=== PATIENT | male | born 1985 | race Hispanic/Latino ===

== ENCOUNTER 2020-12-06 07:00 | Observation (INO) | payer OTHER ==
[2020-12-02 16:25] LABS: ANION GAP 13.8 mmol/L (8-16); BLOOD UREA NITROGEN 8 mg/dL (7-26); BUN/CREATININE RATIO 11 (6-25); CALCIUM 9.2 mg/dL (8.4-10.2); CARBON DIOXIDE 27 mmol/L (22-29); CHLORIDE 103 mmol/L (98-107); CREATININE, SERUM 0.76 mg/dL (0.72-1.25); EST GLOMERULAR FILTRATION RATE > 60 ML/MIN (60-); GLUCOSE 158 mg/dL (74-118); POTASSIUM 3.8 mmol/L (3.5-5.1); SODIUM 140 mmol/L (136-145)
[~2020-12-06] VITALS: Ht 170.2 cm; Wt 95.3 kg
[~2020-12-06 07:00] MED LIST: GLIPIZIDE5 MG PO; METFORMIN HCL850 MG PO
[2020-12-06] MEDS ORDERED: CEFAZOLIN SOD 1 GM/NS 50ML 50 ML IV ONE (08:38)
[2020-12-06] MEDS ORDERED: BUPIVACAINE HCL 0.5% INJ 30 ML VIAL INJ ONE (10:53)
[2020-12-06] MEDS ORDERED: ACETAMINOPHEN 650 MG SUPP PR PRN (11:00)
[2020-12-06] MEDS ORDERED: ONDANSETRON HCL INJ 2MG/ML 2ML 2 MG/ML VIAL IV PRN (11:00)
[2020-12-06] MEDS ORDERED: DOCUSATE SODIUM 100 MG CAP PO PRN (11:00)
[2020-12-06] MEDS ORDERED: HYDROCODONE/APAP 5MG-325MG TAB PO PRN (11:00)
[2020-12-06] MEDS ORDERED: KETOROLAC TROMETHAMINE 30 MG/ML VIAL IV PRN (11:00)
[2020-12-06] MEDS ORDERED: DIPHENHYDRAMINE HCL INJ 50 MG/ML VIAL IV PRN (11:00)
[2020-12-06] MEDS ORDERED: HYDROMORPHONE 1MG/1ML INJ ONE (11:33)
[2020-12-06] MEDS ORDERED: MORPHINE SULFATE INJ 10 MG/ML ONE (11:45)
[2020-12-06] MEDS ORDERED: KETOROLAC TROMETHAMINE 30 MG/ML VIAL ONE (12:24)
[2020-12-06] MEDS ORDERED: PROPOFOL IV EMULSION 10 MG/ML 20 ML VIAL ONE (12:24)
[2020-12-06] MEDS ORDERED: LIDOCAINE HCL 2% LOCAL INJ 5 ML SDV VIAL INJ ONE (12:24)
[2020-12-06] MEDS ORDERED: SEVOFLURANE INHAL SOLN 250 ML PEN BTL ONE (12:24)
[2020-12-06] MEDS ORDERED: DEXAMETHASONE SOD PHOS INJ 4 MG/ML VIAL ONE (12:24)
[2020-12-06] MEDS ORDERED: ONDANSETRON HCL INJ 2MG/ML 2ML 2 MG/ML VIAL ONE (12:24)
[2020-12-06] MEDS ORDERED: POVIDONE IODINE 0.05% 0.05 % ML PO ONE (12:24)
[2020-12-06] MEDS ORDERED: MIDAZOLAM HCL 2 MG/2 ML VIAL ONE (15:10)
[2020-12-06] MEDS ORDERED: FENTANYL CITRATE/PF 100MCG/2 ML INJ ONE (15:10)
[2020-12-06 15:45] VITALS: BP 124/76
[2020-12-06] MEDS: SODIUM CHLORIDE 0.9% 1000ML 1,000 ML IV SCH ×2 (16:40→20:03)
[2020-12-06] MEDS ORDERED: ACETAMINOPHEN 1000 MG/100 ML IV PRN (17:00)
[2020-12-06] MEDS: CELECOXIB 100 MG CAP PO SCH (17:03)
[2020-12-06] MEDS: CEFAZOLIN SOD 1 GM/NS 50ML 50 ML IV SCH (17:03)
[2020-12-06 20:00] VITALS: BP 121/76
[2020-12-06] MEDS ORDERED: ZOLPIDEM TARTRATE 5 MG TAB PO PRN (21:00)
[2020-12-06 21:09] VITALS: BP 121/76
[2020-12-06] MEDS ORDERED: GLIPIZIDE 5 MG TAB PO ONE (22:15)
[2020-12-06] MEDS ORDERED: METFORMIN HCL 850 MG TAB PO ONE (22:15)
[2020-12-06] MEDS: HYDROCODONE/APAP 7.5MG-325MG 1 EA TAB PO PRN (22:25)
[2020-12-07] VITALS (8 sets, daily range): BP systolic 115–130; BP diastolic 73–82
[2020-12-07] MEDS: CEFAZOLIN SOD 1 GM/NS 50ML 50 ML IV SCH ×2 (02:55→11:13)
[2020-12-07] MEDS: SODIUM CHLORIDE 0.9% 1000ML 1,000 ML IV SCH ×2 (04:48→16:27)
[2020-12-07] MEDS: CELECOXIB 100 MG CAP PO SCH (08:16)
[2020-12-07] MEDS: METFORMIN HCL 850 MG TAB PO SCH ×2 (08:16→16:26)
[2020-12-07] MEDS: GLIPIZIDE 5 MG TAB PO SCH ×2 (08:17→16:26)
[2020-12-07] MEDS ORDERED: ONDANSETRON HCL 4 MG ORAL DISINTEGRATING TAB PO PRN (12:45)
[2020-12-07] MEDS ORDERED: DAPTOMYCIN 500mg 10ML 500 MG in SODIUM CHLORIDE 0.9% 100 ML 100 ML IV ONE (15:00)
[2020-12-07] MEDS: HYDROCODONE/APAP 7.5MG-325MG 1 EA TAB PO PRN (16:28)
[2020-12-07] MEDS ORDERED: CELECOXIB 200 MG CAP PO SCH (17:00)
== END 2020-12-07 18:25 | disposition home or self-care (01) ==
LOC: OR 07:00 → PACU V 10:53 → MED/SURG 15:34
PROVIDERS: ADMIT Specialist; ATTEND Specialist
DX: M86.461 Chronic osteomyelitis with draining sinus, right tibia and fibula (principal); E11.9 Type 2 diabetes mellitus without complications; G47.00 Insomnia, unspecified; Z79.84 Long term (current) use of oral hypoglycemic drugs
CPT/HCPCS: 20680; 36415 ×3; 36569 ×2; 71045; 80048; 82948 ×2; 86850; 86900; 86920; 87071; 87075; 87186; 87205; 93005; 97116 ×2; 97139; 97161; 97530; G0378 ×2; J0690 ×2; J1100; J1170; J1885; J2001; J2250; J2270; J2405; J2704; J3010; 76000

== ENCOUNTER 2020-12-14 11:01 | Emergency (ER) | payer OTHER ==
[~2020-12-14] VITALS: Ht 170.2 cm; Wt 95.3 kg
== END 2020-12-14 11:38 | disposition home or self-care (01) ==
LOC: ER 11:34
DX: Z48.01 Encounter for change or removal of surgical wound dressing (principal); I10 Essential (primary) hypertension; E11.9 Type 2 diabetes mellitus without complications
CPT/HCPCS: 99282